=== PATIENT | female | born 1980 | race Caucasian/White ===

== ENCOUNTER 2017-04-22 18:33 | Emergency (ER) | payer BC ==
[~2017-04-22] VITALS: Ht 162.6 cm; Wt 133.8 kg
[~2017-04-22 18:33] MED LIST: CLINDAMYCIN HC300 MG PO; GLIPIZIDE ER10 MG PO; GLUCOPHAGE500 MG PO; IBUPROFEN400 MG PO; NAPROXEN500 MG PO
[2017-04-22] MEDS ORDERED: AMOX TR-K CLV1 EAC1 PO (20:12)
[2017-04-22] MEDS ORDERED: NORCO 5-325 TA1 EACH PO ×2 (20:13→22:44)
[2017-04-22] MEDS ORDERED: TRIAMCINOLONE A15 G2 TOP (20:13)
[2017-04-22] MEDS ORDERED: ESCITALOPRAM OX10 MG PO (20:13)
[2017-04-22] MEDS ORDERED: ATENOLOL-CHLOR1 EACH PO (20:13)
[2017-04-22] MEDS ORDERED: FLUCONAZOLE150 MG PO (20:14)
[2017-04-22] MEDS ORDERED: ACYCLOVIR200 MG PO (22:44)
== END 2017-04-22 22:56 | disposition home or self-care (01) ==
LOC: ED 18:33
DX: A60.09 Herpesviral infection of other urogenital tract (principal); I10 Essential (primary) hypertension; E11.9 Type 2 diabetes mellitus without complications; Z79.899 Other long term (current) drug therapy; Z79.84 Long term (current) use of oral hypoglycemic drugs
CPT/HCPCS: 87210; 87529; 99283